=== PATIENT | female | born 1960 | race Native Hawaiian/Other Pacific Islander ===

== ENCOUNTER 2016-12-13 11:30 | Outpatient (CLI) | payer OTHER ==
[2016-12-13 12:42] LABS: POTASSIUM 3.9 mmol/L (3.6-5.2); SODIUM 139 mmol/L (136-145)
[2016-12-13 12:52] LABS: PLATELET COUNT 252 K/uL (152-353)
== END 2016-12-13 20:10 | disposition home or self-care (01) ==
LOC: LAB 11:30
PROVIDERS: Nurse Practitioner
DX: C50.919 Malignant neoplasm of unspecified site of unspecified female breast (principal); D64.9 Anemia, unspecified; I10 Essential (primary) hypertension
CPT/HCPCS: 80048; 85027

== ENCOUNTER 2016-12-20 11:08 | Outpatient (CLI) | payer OTHER ==
[2016-12-20 11:29] LABS: PLATELET COUNT 279 K/uL (152-353)
[2016-12-20 11:42] LABS: POTASSIUM 3.1 mmol/L (3.6-5.2); SODIUM 139 mmol/L (136-145)
== END 2016-12-20 23:03 | disposition home or self-care (01) ==
LOC: LAB 11:08
PROVIDERS: Nurse Practitioner
DX: C50.919 Malignant neoplasm of unspecified site of unspecified female breast (principal); D64.9 Anemia, unspecified; I10 Essential (primary) hypertension
CPT/HCPCS: 80048; 85027

== ENCOUNTER 2016-12-27 11:27 | Outpatient (CLI) | payer OTHER ==
[2016-12-27 11:48] LABS: PLATELET COUNT 245 K/uL (152-353)
[2016-12-27 12:42] LABS: POTASSIUM 3.6 mmol/L (3.6-5.2); SODIUM 146 mmol/L (136-145)
== END 2016-12-27 20:14 | disposition home or self-care (01) ==
LOC: LAB 11:27
PROVIDERS: Nurse Practitioner
DX: C50.919 Malignant neoplasm of unspecified site of unspecified female breast (principal); D64.9 Anemia, unspecified; I10 Essential (primary) hypertension
CPT/HCPCS: 80048; 85027

== ENCOUNTER 2017-01-03 10:26 | Outpatient (CLI) | payer OTHER ==
[2017-01-03 11:07] LABS: PLATELET COUNT 250 K/uL (152-353); POTASSIUM 3.9 mmol/L (3.6-5.2); SODIUM 139 mmol/L (136-145)
== END 2017-01-04 02:00 | disposition home or self-care (01) ==
LOC: LAB 10:26
PROVIDERS: Nurse Practitioner
DX: C50.919 Malignant neoplasm of unspecified site of unspecified female breast (principal); D64.89 Other specified anemias; I10 Essential (primary) hypertension
CPT/HCPCS: 80048; 85027

== ENCOUNTER 2017-01-10 10:21 | Outpatient (CLI) | payer OTHER ==
[2017-01-10 10:43] LABS: PLATELET COUNT 221 K/uL (152-353)
[2017-01-10 10:52] LABS: POTASSIUM 3.3 mmol/L (3.6-5.2); SODIUM 140 mmol/L (136-145)
== END 2017-01-10 19:34 | disposition home or self-care (01) ==
LOC: LAB 10:21
PROVIDERS: Internal Medicine Infectious Disease
DX: M86.18 Other acute osteomyelitis, other site (principal); Z79.2 Long term (current) use of antibiotics
CPT/HCPCS: 80048; 85027

== ENCOUNTER 2017-08-05 08:45 | Outpatient (CLI) | payer OTHER ==
[2017-08-05 09:06] LABS: PLATELET COUNT 175 K/uL (152-353)
[2017-08-05 09:18] LABS: POTASSIUM 2.6 mmol/L (3.6-5.2)
== END 2017-08-05 09:45 | disposition home or self-care (01) ==
LOC: LABW 08:45
PROVIDERS: Nurse Practitioner
DX: R50.9 Fever, unspecified (principal); D64.89 Other specified anemias; Z79.899 Other long term (current) drug therapy; I10 Essential (primary) hypertension; E78.4 Other hyperlipidemia; Z79.01 Long term (current) use of anticoagulants; G82.20 Paraplegia, unspecified; Z51.81 Encounter for therapeutic drug level monitoring
CPT/HCPCS: 36415; 80053; 81000; 85007; 85027; 85610

== ENCOUNTER 2018-08-21 12:53 | Outpatient (CLI) | payer OTHER ==
[2018-08-21 13:05] LABS: PLATELET COUNT 260 K/uL (152-353)
[2018-08-21 14:09] LABS: POTASSIUM 3.6 mmol/L (3.6-5.2)
== END 2018-08-21 19:23 | disposition home or self-care (01) ==
LOC: LAB 12:53
PROVIDERS: Internal Medicine Infectious Disease
DX: L89.154 Pressure ulcer of sacral region, stage 4 (principal)
CPT/HCPCS: 80053; 85027; 85651; 86140

== ENCOUNTER 2018-08-28 12:22 | Outpatient (CLI) | payer OTHER ==
[2018-08-28 13:13] LABS: PLATELET COUNT 300 K/uL (152-353)
== END 2018-08-28 19:54 | disposition home or self-care (01) ==
LOC: LAB 12:22
PROVIDERS: Internal Medicine Infectious Disease
DX: L89.154 Pressure ulcer of sacral region, stage 4 (principal)
CPT/HCPCS: 80053; 85027; 85651; 86140

== ENCOUNTER 2018-09-05 12:24 | Outpatient (CLI) | payer OTHER ==
[2018-09-05 12:40] LABS: PLATELET COUNT 329 K/uL (152-353)
[2018-09-05 13:17] LABS: POTASSIUM 3.2 mmol/L (3.6-5.2)
== END 2018-09-05 21:23 | disposition home or self-care (01) ==
LOC: LAB 12:24
PROVIDERS: Internal Medicine Infectious Disease
DX: L89.154 Pressure ulcer of sacral region, stage 4 (principal)
CPT/HCPCS: 80053; 85027; 85651; 86140

== ENCOUNTER 2018-09-11 11:29 | Outpatient (CLI) | payer OTHER ==
[2018-09-11 13:01] LABS: PLATELET COUNT 372 K/uL (152-353)
== END 2018-09-11 19:23 | disposition home or self-care (01) ==
LOC: LAB 11:29
PROVIDERS: Internal Medicine Infectious Disease
DX: L89.154 Pressure ulcer of sacral region, stage 4 (principal)
CPT/HCPCS: 80053; 85027; 85610; 85651; 86140

== ENCOUNTER 2018-09-18 12:33 | Outpatient (CLI) | payer OTHER ==
[2018-09-18 12:48] LABS: PLATELET COUNT 375 K/uL (152-353)
[2018-09-18 13:16] LABS: POTASSIUM 3.8 mmol/L (3.6-5.2)
== END 2018-09-18 22:53 | disposition home or self-care (01) ==
LOC: LAB 12:33
PROVIDERS: Internal Medicine Infectious Disease
DX: L89.154 Pressure ulcer of sacral region, stage 4 (principal)
CPT/HCPCS: 80053; 85027; 85651; 86140

== ENCOUNTER 2018-09-25 12:59 | Outpatient (CLI) | payer OTHER | END 2018-09-25 19:50 | disposition home or self-care (01) | LOC: LAB 12:59 | DX: Z79.01 Long term (current) use of anticoagulants (principal) | CPT/HCPCS: 85610 ==

== ENCOUNTER 2018-10-03 11:16 | Outpatient (CLI) | payer OTHER ==
[2018-10-03 11:54] LABS: PLATELET COUNT 385 K/uL (152-353)
[2018-10-03 12:12] LABS: POTASSIUM 3.3 mmol/L (3.6-5.2)
== END 2018-10-03 21:06 | disposition home or self-care (01) ==
LOC: LAB 11:16
PROVIDERS: Internal Medicine
DX: R19.7 Diarrhea, unspecified (principal); R11.0 Nausea; R82.998 Other abnormal findings in urine
CPT/HCPCS: 80053; 81000; 82272; 83630; 85027; 87015; 87045; 87077; 87086; 87088; 87186; 87324; 87328; 87329; 87449; 87899

== ENCOUNTER 2018-10-05 10:15 | Outpatient (CLI) | payer OTHER ==
[2018-10-05 10:24] LABS: PLATELET COUNT 391 K/uL (152-353)
[2018-10-05 10:40] LABS: POTASSIUM 3.3 mmol/L (3.6-5.2)
== END 2018-10-05 19:23 | disposition home or self-care (01) ==
LOC: LAB 10:15
PROVIDERS: Nurse Practitioner
DX: B96.89 Other specified bacterial agents as the cause of diseases classified elsewhere (principal); E11.622 Type 2 diabetes mellitus with other skin ulcer; L89.894 Pressure ulcer of other site, stage 4
CPT/HCPCS: 80053; 85027

== ENCOUNTER 2018-10-16 09:58 | Outpatient (CLI) | payer OTHER | END 2018-10-16 22:48 | disposition home or self-care (01) | LOC: LAB 09:58 | DX: N39.0 Urinary tract infection, site not specified (principal); R19.7 Diarrhea, unspecified; Z51.81 Encounter for therapeutic drug level monitoring | CPT/HCPCS: 81000; 82272; 83630; 85610; 87015; 87045; 87077; 87086; 87088; 87186; 87324; 87328; 87329; 87449; 87899 ==

== ENCOUNTER 2018-11-27 15:23 | Outpatient (CLI) | payer OTHER ==
[2018-11-27 15:36] LABS: PLATELET COUNT 386 K/uL (152-353)
[2018-11-27 15:45] LABS: POTASSIUM 3.8 mmol/L (3.6-5.2)
== END 2018-11-27 22:14 | disposition home or self-care (01) ==
LOC: LAB 15:23
PROVIDERS: Internal Medicine
DX: L89.314 Pressure ulcer of right buttock, stage 4 (principal); Z79.2 Long term (current) use of antibiotics; Z51.81 Encounter for therapeutic drug level monitoring
CPT/HCPCS: 80053; 82550; 85027

== ENCOUNTER 2018-12-01 15:33 | Outpatient (CLI) | payer OTHER | END 2018-12-01 19:06 | disposition home or self-care (01) | LOC: LAB 15:33 | DX: R30.0 Dysuria (principal) | CPT/HCPCS: 81000; 87077; 87086; 87088; 87186 ==

== ENCOUNTER 2018-12-04 16:21 | Outpatient (CLI) | payer OTHER ==
[2018-12-04 16:44] LABS: PLATELET COUNT 353 K/uL (152-353)
[2018-12-04 16:58] LABS: POTASSIUM 4.4 mmol/L (3.6-5.2); SODIUM 141 mmol/L (136-145)
== END 2018-12-04 19:23 | disposition home or self-care (01) ==
LOC: LAB 16:21
PROVIDERS: Internal Medicine
DX: D64.9 Anemia, unspecified (principal); L89.154 Pressure ulcer of sacral region, stage 4
CPT/HCPCS: 80053; 82550; 82553; 85027

== ENCOUNTER 2018-12-05 11:39 | Outpatient (CLI) | payer OTHER | END 2018-12-05 20:43 | disposition home or self-care (01) | LOC: LAB 11:39 | DX: L89.314 Pressure ulcer of right buttock, stage 4 (principal); Z79.2 Long term (current) use of antibiotics; Z51.81 Encounter for therapeutic drug level monitoring | CPT/HCPCS: 82550 ==

== ENCOUNTER 2018-12-07 10:53 | Outpatient (CLI) | payer OTHER | END 2018-12-07 23:30 | disposition home or self-care (01) | LOC: LAB 10:53 | DX: L89.314 Pressure ulcer of right buttock, stage 4 (principal); Z79.2 Long term (current) use of antibiotics; Z51.81 Encounter for therapeutic drug level monitoring | CPT/HCPCS: 82550 ==

== ENCOUNTER 2018-12-11 14:48 | Outpatient (CLI) | payer OTHER ==
[2018-12-11 15:14] LABS: PLATELET COUNT 481 K/uL (152-353)
[2018-12-11 16:26] LABS: POTASSIUM 4.5 mmol/L (3.6-5.2)
== END 2018-12-11 21:00 | disposition home or self-care (01) ==
LOC: LAB 14:48
PROVIDERS: Internal Medicine
DX: L89.314 Pressure ulcer of right buttock, stage 4 (principal); Z79.2 Long term (current) use of antibiotics; Z51.81 Encounter for therapeutic drug level monitoring
CPT/HCPCS: 80053; 82550; 85027

== ENCOUNTER 2018-12-25 11:36 | Outpatient (CLI) | payer OTHER ==
[2018-12-25 11:54] LABS: PLATELET COUNT 375 K/uL (152-353)
[2018-12-25 12:04] LABS: POTASSIUM 3.6 mmol/L (3.6-5.2)
== END 2018-12-25 20:00 | disposition home or self-care (01) ==
LOC: LAB 11:36
PROVIDERS: Nurse Practitioner
DX: E11.9 Type 2 diabetes mellitus without complications (principal); I10 Essential (primary) hypertension; D64.9 Anemia, unspecified; Z51.81 Encounter for therapeutic drug level monitoring; L89.314 Pressure ulcer of right buttock, stage 4
CPT/HCPCS: 80053; 81000; 82550; 84134; 85027

== ENCOUNTER 2019-01-08 11:43 | Outpatient (CLI) | payer OTHER ==
[2019-01-08 12:08] LABS: PLATELET COUNT 405 K/uL (152-353)
== END 2019-01-08 21:56 | disposition home or self-care (01) ==
LOC: LAB 11:43
PROVIDERS: Nurse Practitioner
DX: R30.0 Dysuria (principal)
CPT/HCPCS: 81000; 85027; 87077; 87086; 87088; 87186

== ENCOUNTER 2019-01-15 13:07 | Outpatient (CLI) | payer OTHER ==
[2019-01-15 13:33] LABS: PLATELET COUNT 437 K/uL (152-353)
[2019-01-15 13:47] LABS: POTASSIUM 4.1 mmol/L (3.6-5.2)
== END 2019-01-15 19:50 | disposition home or self-care (01) ==
LOC: LAB 13:07
PROVIDERS: Internal Medicine
DX: L89.314 Pressure ulcer of right buttock, stage 4 (principal); Z79.2 Long term (current) use of antibiotics; Z51.81 Encounter for therapeutic drug level monitoring
CPT/HCPCS: 80053; 82550; 85027

== ENCOUNTER 2019-01-29 13:21 | Outpatient (CLI) | payer OTHER ==
[2019-01-29 13:44] LABS: PLATELET COUNT 382 K/uL (152-353)
== END 2019-01-29 21:03 | disposition home or self-care (01) ==
LOC: LAB 13:21
PROVIDERS: Internal Medicine
DX: L89.314 Pressure ulcer of right buttock, stage 4 (principal); Z79.2 Long term (current) use of antibiotics; Z51.81 Encounter for therapeutic drug level monitoring
CPT/HCPCS: 80053; 85027

== ENCOUNTER 2019-02-12 13:18 | Outpatient (CLI) | payer OTHER | END 2019-02-12 23:03 | disposition home or self-care (01) | LOC: LAB 13:18 | DX: L89.154 Pressure ulcer of sacral region, stage 4 (principal) | CPT/HCPCS: 84134; 84466 ==

== ENCOUNTER 2019-02-13 10:33 | Outpatient (CLI) | payer OTHER ==
[2019-02-13 10:58] LABS: PLATELET COUNT 437 K/uL (152-353)
[2019-02-13 11:12] LABS: POTASSIUM 3.9 mmol/L (3.6-5.2)
== END 2019-02-13 23:20 | disposition home or self-care (01) ==
LOC: LAB 10:33
PROVIDERS: Internal Medicine
DX: L89.314 Pressure ulcer of right buttock, stage 4 (principal); Z79.2 Long term (current) use of antibiotics; Z51.81 Encounter for therapeutic drug level monitoring
CPT/HCPCS: 80053; 85027

== ENCOUNTER 2019-02-27 13:08 | Outpatient (CLI) | payer OTHER ==
[2019-02-27 13:36] LABS: PLATELET COUNT 442 K/uL (152-353)
[2019-02-27 13:37] LABS: POTASSIUM 3.6 mmol/L (3.6-5.2)
== END 2019-02-27 20:27 | disposition home or self-care (01) ==
LOC: LAB 13:08
PROVIDERS: Internal Medicine
DX: L89.154 Pressure ulcer of sacral region, stage 4 (principal)
CPT/HCPCS: 80053; 84134; 85027

== ENCOUNTER 2019-02-28 10:49 | Outpatient (CLI) | payer OTHER | END 2019-02-28 20:12 | disposition home or self-care (01) | LOC: LAB 10:49 | DX: N39.0 Urinary tract infection, site not specified (principal) | CPT/HCPCS: 81000; 87077; 87086; 87088; 87186 ==

== ENCOUNTER 2019-03-13 11:38 | Outpatient (CLI) | payer OTHER ==
[2019-03-13 11:54] LABS: PLATELET COUNT 436 K/uL (152-353)
[2019-03-13 12:03] LABS: POTASSIUM 3.6 mmol/L (3.6-5.2)
== END 2019-03-13 19:37 | disposition home or self-care (01) ==
LOC: LAB 11:38
PROVIDERS: Internal Medicine
DX: L89.154 Pressure ulcer of sacral region, stage 4 (principal); Z79.2 Long term (current) use of antibiotics; Z51.81 Encounter for therapeutic drug level monitoring; L89.314 Pressure ulcer of right buttock, stage 4
CPT/HCPCS: 80053; 85027

== ENCOUNTER 2019-03-26 11:02 | Outpatient (CLI) | payer OTHER ==
[2019-03-26 11:18] LABS: PLATELET COUNT 400 K/uL (152-353)
[2019-03-26 11:26] LABS: POTASSIUM 3.8 mmol/L (3.6-5.2)
== END 2019-03-26 19:20 | disposition home or self-care (01) ==
LOC: LAB 11:02
PROVIDERS: Internal Medicine
DX: L89.314 Pressure ulcer of right buttock, stage 4 (principal); Z79.2 Long term (current) use of antibiotics; Z51.81 Encounter for therapeutic drug level monitoring
CPT/HCPCS: 80053; 84134; 84466; 85027

== ENCOUNTER 2019-04-09 11:43 | Outpatient (CLI) | payer OTHER ==
[2019-04-09 12:12] LABS: PLATELET COUNT 428 K/uL (152-353)
[2019-04-09 12:34] LABS: POTASSIUM 3.7 mmol/L (3.6-5.2)
== END 2019-04-09 19:51 | disposition home or self-care (01) ==
LOC: LAB 11:43
PROVIDERS: Internal Medicine
DX: L89.314 Pressure ulcer of right buttock, stage 4 (principal); Z79.2 Long term (current) use of antibiotics; Z51.81 Encounter for therapeutic drug level monitoring
CPT/HCPCS: 80053; 85027

== ENCOUNTER 2019-04-19 11:04 | Outpatient (CLI) | payer OTHER ==
[2019-04-19 11:28] LABS: PLATELET COUNT 359 K/uL (152-353)
== END 2019-04-19 19:44 | disposition home or self-care (01) ==
LOC: LAB 11:04
PROVIDERS: Internal Medicine Medical Oncology
DX: C50.812 Malignant neoplasm of overlapping sites of left female breast (principal)
CPT/HCPCS: 80053; 82607; 82728; 82746; 83540; 83550; 85027; 85651; 86140